=== PATIENT | female | born 1960 | race Caucasian/White ===

== ENCOUNTER 2018-05-17 10:55 | Day surgery (SDC) | payer OTHER, MEDICARE ==
[~2018-05-17] VITALS: Ht 162.6 cm; Wt 98.9 kg
[~2018-05-17 10:55] MED LIST: CHOL10002 PO; CLON1 PO; ESCI20 PO; L-METHYLFOLATE15 MG PO; LEVSOD150 PO; MELA3 PO; Norco 5-325 Ta1 EACH PO; TRAZ50 PO
== END 2018-05-17 22:48 | disposition home or self-care (01) ==
LOC: ORSCMMR 10:55
PROVIDERS: Orthopaedic Surgery
PROC: 0PSJ04Z Reposition Left Radius with Internal Fixation Device, Open Approach (ICD-10-PCS; principal; 2018-05-17 12:30)
DX: S52.572A Other intraarticular fracture of lower end of left radius, initial encounter for closed fracture (principal); W18.30XA Fall on same level, unspecified, initial encounter; F41.9 Anxiety disorder, unspecified; F34.1 Dysthymic disorder; E03.9 Hypothyroidism, unspecified; F43.21 Adjustment disorder with depressed mood; E66.9 Obesity, unspecified; Z68.37 Body mass index [BMI] 37.0-37.9, adult; Z79.899 Other long term (current) drug therapy
CPT/HCPCS: 73100; C1713; J0690; J1100; J1885; J2250; J2405; J3010; J7120

== ENCOUNTER 2020-07-21 17:30 | Observation (INO) | payer MEDICARE, OTHER ==
[~2020-07-21] VITALS: Ht 162.6 cm; Wt 121.4 kg
[2020-07-21 18:04] LABS: BASOPHILS PERCENT AUTO 0 % (0-2); EOSINOPHILS PERCENT AUTO 0 % (0-6); Hematocrit 48.1 % (33.0-51.0); Hemoglobin 15.1 g/dL (11.5-16.0); IMMATURE GRAN ABSOLUTE AUTO 0.02 K/mm3 (0.00-0.10); IMMATURE GRAN PERCENT AUTO 0 % (0-1); LYMPHOCYTES ABSOLUTE AUTO 1.48 K/mm3 (0.84-5.20); LYMPHOCYTES PERCENT AUTO 25 % (21-46); MONOCYTES PERCENT AUTO 8 % (4-13); Mean Corpuscular HGB 28.8 pg (26.0-34.0); Mean Corpuscular HGB Conc 31.4 g/dL (31.5-36.5); Mean Corpuscular Volume 92 fL (80-100); NEUTROPHILS ABSOLUTE AUTO 3.93 K/mm3 (1.96-9.15); NEUTROPHILS PERCENT AUTO 66 % (41-73); Platelet Count 218 K/mm3 (150-400); RDW Coefficient Variation 13.5 % (11.7-14.2); RDW Standard Deviation 46.1 fL (35.1-46.3); Red Blood Cell Count 5.24 M/mm3 (3.80-5.20); White Blood Cell Count 5.93 K/mm3 (4.00-11.30)
[2020-07-21 18:19] LABS: International Normalized Ratio 0.99; Prothrombin Time Results 10.6 Sec (9.7-11.5)
[2020-07-21 18:21] LABS: Source, Urine Voided
[2020-07-21 18:38] LABS: Appearance, Urine Clear (Clear); Bilirubin, Urine Neg (Neg); Blood, Urine Neg (Neg); Color, Urine Yellow (P-Yellow); Glucose Qualitative, Urine Neg (Neg); Ketones, Urine Neg (Neg); Leukocyte Esterase, Urine Neg (Neg); Nitrite, Urine Neg (Neg); Protein, Urine Neg (Neg); Urobilinogen, Urine NORM (Normal)
[2020-07-21 18:47] LABS: Alanine Aminotransfer (ALT/SGP 38 U/L (12-78); Albumin, Blood 3.5 g/dL (3.4-5.0); Albumin/Globulin Ratio 0.9 (0.8-1.8); Alk Phos 179 U/L (50-136); Anion Gap 5 mmol/L (6-16); Aspartate Aminotrans (AST/SGOT 22 U/L (12-37); Bilirubin, Total 0.4 mg/dL (0.1-1.0); Blood Urea Nitrogen 22 mg/dL (8-24); Bun/Creatinine Ratio 26.3 (12.0-20.0); CO2, Blood 26 mmol/L (21-32); Calcium, Blood 8.9 mg/dL (8.5-10.1); Chloride, Blood 110 mmol/L (98-108); Creatinine, Blood 0.84 mg/dL (0.40-1.00); Globulin, Blood 3.8 g/dL (2.2-4.0); Glomerular Filtration Rate >60 (60-); Glucose, Blood 96 mg/dL (70-99); Sodium, Blood 141 mmol/L (136-145); Total Protein, Blood 7.3 g/dL (6.4-8.2); Troponin I <0.015 ng/mL (0.000-0.040)
[2020-07-21 18:58] LABS: Ethanol (Alcohol), Blood, Med <3 mg/dL
[2020-07-21 18:58] LABS: U Amphetamine Screen Not Detected; U Barbituate Screen Not Detected; U Benzodiazapine Screen Not Detected; U Buprenorphine Screen Not Detected; U Cannabinoids Screen Not Detected; U Cocaine Screen Not Detected; U Methadone Screen Not Detected; U Methamphetamine Screen Not Detected; U Opiates Screen Not Detected; U Oxycodone Screen Not Detected; U Phencyclidine Screen Not Detected; U Propoxyphene Screen Not Detected
[2020-07-21 19:34] LABS: Salicylate 1.8 mg/dL (2.8-20.0)
[2020-07-21 19:41] LABS: Acetaminophen, Random <2.0 ug/mL (10.0-30.0)
[2020-07-21] MEDS ORDERED: EFFEXOR XR150 MG PO (20:16)
[2020-07-21] MEDS ORDERED: ATOR40TA PO (20:16)
[2020-07-21] MEDS ORDERED: NEURONTIN400 M1 PO (20:17)
[2020-07-21 20:18] LABS: Influenza A, PCR Negative (NEGATIVE); Influenza B, PCR Negative (NEGATIVE); Resp Syncytial Virus, PCR Negative (NEGATIVE); SARS-Cov-2 (COVID-19) PCR, MMC Negative (NEGATIVE)
[2020-07-21] MEDS ORDERED: TRAZ100 PO (20:20)
[2020-07-21] MEDS ORDERED: Vitamin D2000 UNIT PO (20:21)
[2020-07-22 06:00] LABS: BASOPHILS PERCENT AUTO 0 % (0-2); EOSINOPHILS PERCENT AUTO 0 % (0-6); Hematocrit 45.7 % (33.0-51.0); Hemoglobin 14.2 g/dL (11.5-16.0); IMMATURE GRAN ABSOLUTE AUTO 0.01 K/mm3 (0.00-0.10); IMMATURE GRAN PERCENT AUTO 0 % (0-1); LYMPHOCYTES ABSOLUTE AUTO 1.19 K/mm3 (0.84-5.20); LYMPHOCYTES PERCENT AUTO 19 % (21-46); MONOCYTES ABSOLUTE AUTO 0.52 K/mm3 (0.16-1.47); MONOCYTES PERCENT AUTO 8 % (4-13); Mean Corpuscular HGB Conc 31.1 g/dL (31.5-36.5); Mean Corpuscular Volume 93 fL (80-100); Mean Platelet Volume 10.2 fL (9.1-12.4); NEUTROPHILS ABSOLUTE AUTO 4.68 K/mm3 (1.96-9.15); NEUTROPHILS PERCENT AUTO 73 % (41-73); Platelet Count 204 K/mm3 (150-400); RDW Coefficient Variation 13.5 % (11.7-14.2); RDW Standard Deviation 46.2 fL (35.1-46.3)
[2020-07-22 06:11] LABS: Alanine Aminotransfer (ALT/SGP 36 U/L (12-78); Albumin, Blood 3.3 g/dL (3.4-5.0); Alk Phos 167 U/L (50-136); Anion Gap 3 mmol/L (6-16); Aspartate Aminotrans (AST/SGOT 28 U/L (12-37); Bilirubin, Total 0.4 mg/dL (0.1-1.0); Blood Urea Nitrogen 18 mg/dL (8-24); Bun/Creatinine Ratio 25.5 (12.0-20.0); CO2, Blood 27 mmol/L (21-32); Calcium, Blood 8.5 mg/dL (8.5-10.1); Chloride, Blood 113 mmol/L (98-108); Creatinine, Blood 0.71 mg/dL (0.40-1.00); Globulin, Blood 3.2 g/dL (2.2-4.0); Glomerular Filtration Rate >60 (60-); Glucose, Blood 83 mg/dL (70-99); Potassium, Blood 4.1 mmol/L (3.5-5.5); Sodium, Blood 143 mmol/L (136-145); Total Protein, Blood 6.5 g/dL (6.4-8.2)
--- NOTE | 2020-07-22 17:57 | NUR ---
SHIFT SUMMARY- PT ALERT AND ORIENTED AND HAS AN UNDERSTANDING OF WHY SHE IS HERE. PT STATED SHE TOOK THOSE PILLS DELIBERATELY TO TRY TO END HER LIFE. PT SCORES A HIGH SUICIDE RISK. PT IS ON CAMERAS WITH A 1:1 SITTER. PLAN IS TO DISCHARGE TO IN PT PSYCH FACILITY WHEN A BED IS AVAILABLE.
--- NOTE | 2020-07-23 03:27 | NUR ---
SHIFT SUMMARY: 60 Y/O FEMALE RESTED COMFORTABLY ALL SHIFT WITH 1:1 SITTER AT SIDE ENTIRE SHIFT; PT VERY QUIET AND WITHDRAWN AT TIMES WITH MINIMAL INTERACTION NOTED BETWEEN SITTER AND THIS NURSE OR DIRECTOR MARKET RESEARCH STAFF; PT ON REMOTE CAMERA OBSERVATION FOR SUICIDAL IDEATIONS; DENIES PAIN OR NAUSEA; BED LOW POSITION WITH CALL LIGHT AT SIDE.
--- NOTE | 2020-07-23 16:51 | NUR ---
PT OFFERED A SHOWER BUT DECLINED. PT IS CURRENTLY UPSET ABOUT GOING TO A FACILITY. PRIOR TO HER VISITING HER SHE WAS OK WITH THE PLAN. WHEN HER CAME IN HE WAS UPSET ABOUT IT AND COTTON BUYER WERE CALLED IN TO EXPLAIN THE SITUATION TO HIM. HE BEGAN TO UNDERSTAND THE SITUATION AND LEFT CALMLY A WHILE AFTER THE EVENT. PT IS STILL CURRENTLY UPSET.
[2020-07-23 17:40] LABS: Source, Urine Clean Catch
[2020-07-23 17:57] LABS: Appearance, Urine Bloody (Clear); Bilirubin, Urine Neg (Neg); Blood, Urine 5+ (Neg); Color, Urine Red (P-Yellow); Glucose Qualitative, Urine Neg (Neg); Ketones, Urine 1+ (Neg); Leukocyte Esterase, Urine 1+ (Neg); Nitrite, Urine Neg (Neg); Protein, Urine 4+ (Neg); Specific Gravity, Urine 1.015 (1.003-1.022); Urobilinogen, Urine NORM (Normal); pH, Urine 6.5 (5.0-8.0)
--- NOTE | 2020-07-23 18:04 | NUR ---
CALLED DR MANTILLA PT HAD A LITTLE PINK IN THE TOILET WHEN SHE URINATED THIS AFTERNOON SO HAT WAS PLACED TO COLLECT URINE THIS EVENING WHEN SHE WENT AGAIN. URINE WAS ALEXUS RED AND WHEN PLACED IN A SPECIMEN CUP LIGH WOULD NOT SHINE THROUGH, ODOR WAS VERY FOUL. RECIEVED ORDER FOR URINALYSIS WITH CULTURE AND A CANCEL TRANSPORT FOR INPT PSYCH UNTIL TOMORROW.
--- NOTE | 2020-07-23 18:11 | NUR ---
CALLED DR TO REQUEST H&H ORDER RECIEVED.
[2020-07-23 18:18] LABS: Bacteria Many /hpf; Red Blood Cells, Urine TNTC /hpf (0-2); Squamous Epithelial Cells Few /hpf (Few)
--- NOTE | 2020-07-23 18:25 | NUR ---
PT STATED SHE IS NOW HAVING LOWER ABDOMEN (BLADDER PAIN) THIS IS NEW. PT STATED SHE IS ALSO HAVING LOW BACK PAIN WELL. THIS IS NOT NEW HOWEVER THE PT STATED IT FEELS DIFFERENT THAN BEFORE. WILL CALL DR TO UPDATE.
[2020-07-23 18:27] LABS: Hematocrit 47.2 % (33.0-51.0); Hemoglobin 14.8 g/dL (11.5-16.0)
--- NOTE | 2020-07-23 19:50 | NUR ---
SHIFT SUMMARY- SPOKE TO TRANSPORT COMPANY AND [facility] ABOUT THE PT DELAY. CALLED ABOUT THE PT NEW ONSET OF 3/10 PAIN IN THE LOW ABDOMEN BLADDER AREA, LEFT A MESSAGE. REPORT COMPLETED WITH NIGHT RN. PT IV WAS DC'D JUST PRIOR TO GOING TO THE BATHROOM WHEN SHE WAS PREPARING TO LEAVE, AT WHICH TIME SHE URINATED INTO A HAT ALEXUS RED BLOOD. SEE PREVIOUS NOTES FOR DETAILS. H&H CAME BACK WNL AT THIS TIME, NIGHT RN AWARE. NO S&S OF DISTRESS NOTED AT THE TIME OF SHIFT CHANGE. PT STILL ON HIGH RISK SUICIDE PRECAUTIONS WITH A 1:1 SITTER, ON CAMERA.
--- NOTE | 2020-07-23 20:14 | NUR ---
PT AMBULATED BATHROOM WITH GAIT SLIGHTLY UNSTEADY AND VOIDED 200ML LIGHT RED FLUID; DENIES PAIN OR NAUSEA; SITTER AT SIDE FOR 1:1 OBSERVATION AND REMOTE CAMERA OBSERVATION IN EFFECT ALSO.
--- NOTE | 2020-07-24 03:36 | NUR ---
SHIFT SUMMARY: 60 Y/O OB[place] FEMALE RESTED COMFORTABLY ALL SHIFT (SEE PREVIOUS NURSING NOTES); PT HAS 1:1 SITTER MAINTAINED ALL SHIFT FOR SUICIDAL IDEATIONS; PT HAS VOIDED ALEXUS RED BLOOD TWICE THIS SHIFT (OBSERVED BY THIS NURSE); DENIES PAIN OR NAUSEA; PT HAS FLAT AFFECT WITH MINIMAL INTERACTION WITH NURSING STAFF NOTED; BED LOW POSITION WITH CALL LIGHT AT SIDE.
[2020-07-24 05:20] LABS: BASOPHILS ABSOLUTE AUTO 0.01 K/mm3 (0.00-0.23); BASOPHILS PERCENT AUTO 0 % (0-2); EOSINOPHILS PERCENT AUTO 0 % (0-6); Hematocrit 45.6 % (33.0-51.0); Hemoglobin 14.5 g/dL (11.5-16.0); IMMATURE GRAN ABSOLUTE AUTO 0.02 K/mm3 (0.00-0.10); IMMATURE GRAN PERCENT AUTO 0 % (0-1); LYMPHOCYTES ABSOLUTE AUTO 1.16 K/mm3 (0.84-5.20); LYMPHOCYTES PERCENT AUTO 13 % (21-46); MONOCYTES ABSOLUTE AUTO 0.81 K/mm3 (0.16-1.47); MONOCYTES PERCENT AUTO 9 % (4-13); Mean Corpuscular HGB 29.5 pg (26.0-34.0); Mean Corpuscular HGB Conc 31.8 g/dL (31.5-36.5); Mean Corpuscular Volume 93 fL (80-100); Mean Platelet Volume 10.1 fL (9.1-12.4); NEUTROPHILS ABSOLUTE AUTO 7.31 K/mm3 (1.96-9.15); NEUTROPHILS PERCENT AUTO 79 % (41-73); Platelet Count 192 K/mm3 (150-400); RDW Coefficient Variation 13.4 % (11.7-14.2); RDW Standard Deviation 45.4 fL (35.1-46.3); Red Blood Cell Count 4.91 M/mm3 (3.80-5.20); White Blood Cell Count 9.31 K/mm3 (4.00-11.30)
[2020-07-24 05:43] LABS: Anion Gap 5 mmol/L (6-16); Blood Urea Nitrogen 13 mg/dL (8-24); Bun/Creatinine Ratio 14.3 (12.0-20.0); CO2, Blood 27 mmol/L (21-32); Calcium, Blood 8.6 mg/dL (8.5-10.1); Chloride, Blood 110 mmol/L (98-108); Creatinine, Blood 0.91 mg/dL (0.40-1.00); Glomerular Filtration Rate >60 (60-); Glucose, Blood 118 mg/dL (70-99); Potassium, Blood 3.6 mmol/L (3.5-5.5); Sodium, Blood 142 mmol/L (136-145)
--- NOTE | 2020-07-24 07:54 | NUR ---
No Safety Plan completed at this time due to patient requiring higher level of care of psychiatric inpatient. Unable to engage in safety plannng due to intense SI, and contraindicated for discharge to home due to safety risk of self harm. Shraddha López M.Ed., [facility], Behavior Health Director
--- NOTE | 2020-07-24 11:20 | NUR ---
PATIENT STATED THAT SHE DOES NOT WANT TO AND THAT SHE DOES NOT HAVE A SUICIDE PLAN. PATIENT STATED THAT "SOMETIMES I GET REALLY DEPRESSED AND JUST DON'T SEE A REASON TO STAY ALIVE". SITTER IS OUSIDE THE ROOM MONITORING THE PATIENT. CAMERA MONITORING IS ON. PATIENT JUST WENT TO THE BATHROOM WITH RN SUPERVISING, 400 ML URINE OUTPUT, RED TINGED. THE VOID EARLIER THIS MORNING WAS ALEXUS RED IN COLOR. PATIENT STATES SHE HAS SOME BURNING WITH URINATION. PROPER CAITLYN CARE WAS COMPLETED.
--- NOTE | 2020-07-24 11:30 | NUR ---
PATIENT STATES SHE HAS NOT HAD THOUGHTS TO KILL HERSELF SINCE LAST ASSESSED. PATIENT STATES SHE DOES NOT HAVE A PLAN TO KILL HERSLEF.
--- NOTE | 2020-07-24 15:33 | NUR ---
sUICIDE sAFETY pLAN completed Pt sees Dr. blair at [facility] every 3-6 weeks. She has a scheduled appointment--not sure when but it is on her calendar at home. Pt. was talkative and was able to smile and joke regarding her cats. Pt is in SSD for depression. Reports that counseling h"has not worked in the past", and she does not want a counselor at this point. Her mood is more elevated and her affect is appropriate to the conversation. Pt is glad that she is alive, and reports she thinks she got overwhelmed with the financial issues. Her is retired, No children. She has a good male friend that she skypes with. This friend is who alerted her to her overdosing, as she had told er friend that she took pills. Pt is looking firward to going home if the discharges her. Shraddha López M.Ed., [facility]
--- NOTE | 2020-07-24 18:19 | NUR ---
PATIENT IS ALERT AND ORIENTED AND COOPERATIVE WITH CARE. DR. CUMMINS DISCONTINUED SUICIDE PRECAUTIONS FOR THE PATIENT TODAY. PATIENT COMPLAINED OF A HEADACHE THIS AFTERNOON, TREATED WITH TYLENOL. FABRICATOR ARTIFICIAL BREAST REPORTED A TEMPERATURE OF 100.5 THIS AFTERNOON, AFTER THE TYLENOL WAS GIVEN TO THE PATIENT, UPON RECHECKING THE ORAL TEMP THE RESULT WAS 98.7. PATIENT COMPLAINED OF BURNING WITH URINATION. WILL CONTINUE TO MONITOR.
--- NOTE | 2020-07-25 06:08 | NUR ---
SHIFT SUMMARY PT IS A 60 Y/O FEMALE, ADMITTED FOR AN INTENTIONAL OVERDOSE. PT WAS RELEASED FROM SI PRECAUTIONS ON DAY SHIFT YESTERDAY PER REPORT. NO REPORTS OF SI, ACUTE PAIN, NAUSEA OR SOB. VITAL SIGNS STABLE. PT DID REPORT CONTINUED BLOOD IN HER URINE, BUT STATES IT IS "LESS THAN IT WAS BEFORE". NO ACUTE CHANGES IN PT CONDITION NOTED DURING THE NIGHT. WILL CONTINUE TO MONITOR AND TREAT PER EMAR UNTIL HAND OFF TO DAY SHIFT RN.
--- NOTE | 2020-07-25 12:29 | NUR ---
SI PER PATIENT'S SISTER: AFTER RECEIVING VERBAL PERMISSION FROM THE PATIENT, RN SPOKE WITH PATIENT'S SISTER BRANDON ON THE PHONE. SISTER EXPRESSED CONCERN OVER THE PATIENT'S SAFETY AT HOME AND THE PATIENT'S RESISTANCE TO GETTING HELP IN THE COMMUNITY. PATIENT'S SISTER REPORTED THAT THE PATIENT'S SUICIDAL IDEATION HAS INCREASED OVER THE LAST 6 MONTHS OR SO. SISTER REPORTED THAT THE PATIENT'S IS "CONTROLLING" AND THAT HE IS NOT WILLING TO PROVIDE THE PATIENT WITH THE MONEY NEEDED FOR OUTPATIENT PSYCHIATRIC HELP. PATIENT REQUESTED THAT THIS INFORMATION BE PASSED ON TO THE PATIENT'S MD. DISCUSSED THIS CONVERSATION WITH DR. NORMAN. AT THIS TIME, THERE ARE NO CHANGES TO THE PLAN OF CARE OR DISCHARGE.
[2020-07-25] MEDS ORDERED: ACET325 PO (14:34)
[2020-07-25] MEDS ORDERED: LACT PO (14:35)
[2020-07-25] MEDS ORDERED: AMOCLA875 PO (14:35)
[2020-07-25] MEDS ORDERED: TRAZ50 PO (14:39)
[2020-07-25] MEDS ORDERED: EFFEXOR XR150 MG PO (14:40)
[2020-07-25] MEDS ORDERED: Vitamin D2000 UNIT PO (14:40)
--- NOTE | 2020-07-25 16:15 | NUR ---
DISCHARGE: 1500: PATIENT DENIED ABDOMINAL PAIN THROUGHOUT SHIFT. PATIENT REPORTED MINIMAL BLOOD IN URINE. PATIENT REPORTS GREAT IMPROVEMENT. PATIENT DENIES SUICIDAL IDEATION AT THIS TIME. DISCUSSED STRATEGIES FOR MANAGING ANXIETY AND DEPRESSION AT HOME. ENCOURAGED PATIENT TO REACH OUT TO HER SUPPORT GROUP AND TO FIND WAYS TO INCREASE (EX. SHE ENJOYS WORKING WITH CATS. ENCOURAGED HER TO REACH OUT TO [employer] FOR VOLUNTEER OPPORTUNITIES). PATIENT REPORTED THAT SHE MAY BE LOSING HER HOME RELATED TO FINANCIAL ISSUES. DISCUSSED WITH CODER OPERATOR. PATIENT REPORTED THAT SHE DID NOT WANT THE CODER OPERATOR TO FOLLOW-UP TOMORROW WITH HER . MESSAGE LEFT WITH CODER OPERATOR KINDRA CONLEY. PROVIDED PATIENT WITH COMMUNITY PHONE NUMBERS THAT MAY BE ALBE TO ASSIST. DISCUSSED DISCHARGE ORDER FOR TRAZADONE 25MG PRN Q4HR WITH DR. NORMAN. PATIENT HAS NOT REQUIRED THIS MEDICATION DURING HER STAY. THIS MEDICATION WAS DISCONTINUED FOR DISCHARGE. PATIENT NOTIFIED. PATIENT DISCHARGE RX FAXED TO [facility] PER PATIENT REQUEST. DISCHARGE EDUCATION AND INSTRUCTIONS PROVIDED. DISCUSSED STRATEGIES FOR MANAGEMENT DEPRESSION AT HOME AND PROVIDED RELATED EDUCATION. ALL QUESTIONS AND CONCERNS ADDRESSED. PATIENT DISCHARGED IN WHEELCHAIR WITH PARACH[employer] MANUFACTURING SUPERVISOR. PATIENT STABLE AT TIME OF DISCHARGE.
== END 2020-07-25 15:43 | disposition home or self-care (01) ==
LOC: ER 17:30 → MEDS 17:31 → ERHOLD 17:31 → MEDS 07-22 12:15
PROVIDERS: Emergency Medicine; Internal Medicine; ADMIT Internal Medicine
DX: T42.4X2A Poisoning by benzodiazepines, intentional self-harm, initial encounter (principal); F33.9 Major depressive disorder, recurrent, unspecified; N39.0 Urinary tract infection, site not specified; R31.9 Hematuria, unspecified; B96.20 Unspecified Escherichia coli [E. coli] as the cause of diseases classified elsewhere; E03.9 Hypothyroidism, unspecified; E78.5 Hyperlipidemia, unspecified; G62.9 Polyneuropathy, unspecified; G47.30 Sleep apnea, unspecified; Z88.8 Allergy status to other drugs, medicaments and biological substances; Z79.899 Other long term (current) drug therapy; Z20.828 Contact with and (suspected) exposure to other viral communicable diseases; Z23 Encounter for immunization
CPT/HCPCS: 0241U; 36415; 51701; 51798; 71045; 80048; 80053; 81001; 81003; 83690; 84439; 84443; 84484; 85014; 85018; 85025; 85610; 87077; 87086; 87186; 93005; 93010; 96361; 99285-25; A9270; G0480; J0696; J1650; J7030

== ENCOUNTER 2021-03-30 09:20 | Day surgery (SDC) | payer MEDICARE, OTHER ==
[~2021-03-30] VITALS: Ht 162.6 cm; Wt 121.5 kg
[~2021-03-30 09:20] MED LIST changes: +ABILIFY MYCITE2 M2 PO; +ACET325 PO; +AMOCLA875 PO; +ATOR40TA PO; +EFFEXOR XR150 MG PO; +LACT PO; +NEURONTIN400 M1 PO; +TRAZ100 PO; +Vitamin D2000 UNIT PO
== END 2021-03-30 12:04 | disposition home or self-care (01) ==
LOC: ORSCSDS 09:20
PROVIDERS: Student in an Organized Health Care Education/Training Program
PROC: 0DBL8ZX Excision of Transverse Colon, Via Natural or Artificial Opening Endoscopic, Diagnostic (ICD-10-PCS; principal; 2021-03-30 10:45)
PROC: 0DBN8ZX Excision of Sigmoid Colon, Via Natural or Artificial Opening Endoscopic, Diagnostic (ICD-10-PCS; principal; 2021-03-30 10:45)
DX: Z12.11 Encounter for screening for malignant neoplasm of colon (principal); K63.5 Polyp of colon; K64.4 Residual hemorrhoidal skin tags; Z86.010 Personal history of colon polyps; F31.9 Bipolar disorder, unspecified; E03.9 Hypothyroidism, unspecified; Z79.899 Other long term (current) drug therapy
CPT/HCPCS: 88305; J2704; J7120

== ENCOUNTER 2021-05-19 10:44 | Day surgery (SDC) | payer MEDICARE, OTHER ==
[~2021-05-19] VITALS: Ht 160 cm; Wt 121.7 kg
--- NOTE | 2021-05-19 12:32 | NUR ---
05/19/21 1232 Alek Junior 0.15MG EPI ADDED TO 30ML 0.5% MARCAINE PL TO ACHIEVE SOLUTION OF 1:200,000.
== END 2021-05-19 15:11 | disposition home or self-care (01) ==
LOC: ORSCSDS 10:44
PROVIDERS: Podiatrist Foot & Ankle Surgery
PROC: 0SGH04Z Fusion of Right Tarsal Joint with Internal Fixation Device, Open Approach (ICD-10-PCS; principal; 2021-05-19 12:00)
PROC: 0QSN04Z Reposition Right Metatarsal with Internal Fixation Device, Open Approach (ICD-10-PCS; principal; 2021-05-19 12:00)
DX: M21.611 Bunion of right foot (principal); M77.41 Metatarsalgia, right foot; E03.9 Hypothyroidism, unspecified; F32.9 Major depressive disorder, single episode, unspecified; E66.01 Morbid (severe) obesity due to excess calories; Z68.42 Body mass index [BMI] 45.0-49.9, adult; Z79.899 Other long term (current) drug therapy
CPT/HCPCS: C1713; C1769; C1776; J0171; J0690; J1100; J1885; J2250; J2405; J2704; J3010; J7120

== ENCOUNTER → 2021-09-08 | Outpatient (CLI) | payer MEDICARE, OTHER ==
[2021-09-08 12:11] LABS: Source, Urine Clean Catch
[2021-09-08 15:26] LABS: Bilirubin, Urine Neg (Neg); Blood, Urine 1+ (Neg); Glucose Qualitative, Urine Neg (Neg); Ketones, Urine Neg (Neg); Leukocyte Esterase, Urine 2+ (Neg); Nitrite, Urine Pos (Neg); Protein, Urine Neg (Neg); Urobilinogen, Urine NORM (Normal)
[2021-09-08 16:04] LABS: Appearance, Urine Hazy (Clear); Color, Urine Yellow (P-Yellow)
[2021-09-08 16:05] LABS: White Blood Cells, Urine 50-100 /hpf (0-5)
[2021-09-08 16:06] LABS: Bacteria Many /hpf; Red Blood Cells, Urine 0-2 /hpf (0-2); Squamous Epithelial Cells Rare /hpf (Few)
== END | disposition home or self-care (01) ==
LOC: LAB SHORT 09:20
PROVIDERS: Student in an Organized Health Care Education/Training Program
DX: R82.90 Unspecified abnormal findings in urine (principal); R32 Unspecified urinary incontinence
CPT/HCPCS: 81001; 87077; 87086; 87186

== ENCOUNTER 2022-04-28 08:46 | Emergency (ER) | payer MEDICARE, OTHER ==
[~2022-04-28] VITALS: Ht 162.6 cm; Wt 136.1 kg
[2022-04-28 10:15] LABS: BASOPHILS PERCENT AUTO 0 % (0-2); EOSINOPHILS PERCENT AUTO 0 % (0-6); Hematocrit 48.4 % (33.0-51.0); Hemoglobin 15.3 g/dL (11.5-16.0); IMMATURE GRAN ABSOLUTE AUTO 0.02 K/mm3 (0.00-0.10); IMMATURE GRAN PERCENT AUTO 0 % (0-1); LYMPHOCYTES ABSOLUTE AUTO 1.27 K/mm3 (0.84-5.20); LYMPHOCYTES PERCENT AUTO 16 % (21-46); MONOCYTES PERCENT AUTO 7 % (4-13); Mean Corpuscular HGB 29.5 pg (26.0-34.0); Mean Corpuscular HGB Conc 31.6 g/dL (31.5-36.5); Mean Corpuscular Volume 93 fL (80-100); Mean Platelet Volume 10.1 fL (9.1-12.4); NEUTROPHILS ABSOLUTE AUTO 6.22 K/mm3 (1.96-9.15); NEUTROPHILS PERCENT AUTO 77 % (41-73); Platelet Count 221 K/mm3 (150-400); RDW Coefficient Variation 13.5 % (11.7-14.2); RDW Standard Deviation 46.1 fL (35.1-46.3); Red Blood Cell Count 5.18 M/mm3 (3.80-5.20); White Blood Cell Count 8.11 K/mm3 (4.00-11.30)
[2022-04-28 10:57] LABS: Albumin, Blood 3.5 g/dL (3.4-5.0); Albumin/Globulin Ratio 0.9 (0.8-1.8); Bilirubin, Total 0.3 mg/dL (0.1-1.0); Bun/Creatinine Ratio 18.8 (12.0-20.0); Creatinine, Blood 1.01 mg/dL (0.40-1.00); Globulin, Blood 3.9 g/dL (2.2-4.0); Total Protein, Blood 7.4 g/dL (6.4-8.2)
[2022-04-28] MEDS ORDERED: Prednisone20 MG PO (11:33)
== END 2022-04-28 11:42 | disposition home or self-care (01) ==
LOC: ER 08:46
PROVIDERS: Physician Assistant
DX: G51.0 Bell's palsy (principal); Z88.8 Allergy status to other drugs, medicaments and biological substances; Z79.899 Other long term (current) drug therapy
CPT/HCPCS: 36415; 70450; 80053; 83690; 85025

== ENCOUNTER 2022-08-12 07:40 | Emergency (ER) | payer OTHER, MEDICARE ==
[~2022-08-12] VITALS: Ht 162.6 cm; Wt 149.7 kg
[~2022-08-12 07:40] MED LIST changes: +Prednisone20 MG PO
[2022-08-12 09:42] LABS: Albumin, Blood 3.3 g/dL (3.4-5.0); Albumin/Globulin Ratio 0.9 (0.8-1.8); Bilirubin, Total 0.2 mg/dL (0.1-1.0); Bun/Creatinine Ratio 24.3 (12.0-20.0); Calcium, Blood 8.9 mg/dL (8.5-10.1); Creatinine, Blood 1.11 mg/dL (0.40-1.00); Globulin, Blood 3.7 g/dL (2.2-4.0); Potassium, Blood 4.6 mmol/L (3.5-5.5)
[2022-08-12 09:43] LABS: BASOPHILS PERCENT AUTO 0 % (0-2); EOSINOPHILS PERCENT AUTO 0 % (0-6); Hematocrit 44.4 % (33.0-51.0); Hemoglobin 14.3 g/dL (11.5-16.0); IMMATURE GRAN ABSOLUTE AUTO 0.03 K/mm3 (0.00-0.10); IMMATURE GRAN PERCENT AUTO 0 % (0-1); LYMPHOCYTES ABSOLUTE AUTO 1.55 K/mm3 (0.84-5.20); LYMPHOCYTES PERCENT AUTO 20 % (21-46); MONOCYTES ABSOLUTE AUTO 0.63 K/mm3 (0.16-1.47); MONOCYTES PERCENT AUTO 8 % (4-13); Mean Corpuscular HGB 30.8 pg (26.0-34.0); Mean Corpuscular HGB Conc 32.2 g/dL (31.5-36.5); Mean Corpuscular Volume 96 fL (80-100); Mean Platelet Volume 10.3 fL (9.1-12.4); NEUTROPHILS ABSOLUTE AUTO 5.56 K/mm3 (1.96-9.15); NEUTROPHILS PERCENT AUTO 72 % (41-73); Platelet Count 212 K/mm3 (150-400); RDW Coefficient Variation 14.3 % (11.7-14.2); RDW Standard Deviation 50.2 fL (35.1-46.3); Red Blood Cell Count 4.64 M/mm3 (3.80-5.20); White Blood Cell Count 7.77 K/mm3 (4.00-11.30)
[2022-08-12] MEDS ORDERED: LIDO700A20 TOP (10:58)
[2022-08-12] MEDS ORDERED: MECL25 PO (10:58)
== END 2022-08-12 12:04 | disposition home or self-care (01) ==
LOC: ER 07:40
PROVIDERS: Student in an Organized Health Care Education/Training Program
DX: M25.511 Pain in right shoulder (principal); R42 Dizziness and giddiness; E03.9 Hypothyroidism, unspecified; W01.0XXA Fall on same level from slipping, tripping and stumbling without subsequent striking against object, initial encounter; Z88.8 Allergy status to other drugs, medicaments and biological substances; Z79.899 Other long term (current) drug therapy; Z79.890 Hormone replacement therapy
CPT/HCPCS: 73030; 80053; 85025; 93005; 93010; A9270; J1885; J7030

== ENCOUNTER → 2023-07-27 | Outpatient (CLI) | payer MEDICARE, OTHER ==
[~2023-07-27] MED LIST changes: +LIDO700A20 TOP; +MECL25 PO
== END | disposition home or self-care (01) ==
LOC: LAB SHORT 08:03 → LAB 08:03
DX: L98.9 Disorder of the skin and subcutaneous tissue, unspecified (principal)
CPT/HCPCS: 88305; 88312; 88313

== ENCOUNTER 2024-05-10 08:05 | Day surgery (SDC) | payer MEDICARE, OTHER ==
[~2024-05-10] VITALS: Ht 160 cm; Wt 145.7 kg
[~2024-05-10 08:05] MED LIST changes: +Aspir 8181 MG PO; +Lactated Ringer's 1,000 ML IV SCH; +NAPR220 PO
[2024-05-10 08:33] VITALS: BP 151/99
--- NOTE | 2024-05-10 08:54 | NUR ---
Ambulatory in Day Surgery History, Chart, Medications and Allergies reviewed before start of procedure. Pre-Op teaching done. Pt verbalizes understanding. Patient States Post-Procedure ride home has been arranged.
[2024-05-10] MEDS ORDERED: propofoL 60 ML IV ONE (09:14)
--- NOTE | 2024-05-10 09:45 | NUR ---
05/10/24 0945 Alondra Littlejohn History, Chart, Medications and Allergies reviewed before start of procedure. MONITOR INTACT WITH CONTINUOUS PULSE OXIMETRY, CONTINUOUS END TITAL CO2, AND INTERMITTENT BLOOD PRESSURE. Bite Block Placed. PATIENT DETERMINED TO BE ASA APPROPRIATE FOR PROPOFOL SEDATION PRIOR TO START OF PROCEDURE BY DR. WYNN.
[2024-05-10 09:51] VITALS: BP 118/68
[2024-05-10 10:00] VITALS: BP 133/83
--- NOTE | 2024-05-10 10:12 | NUR ---
Discharge instructions reviewed with patient. Patient verbalizes understanding. Copy given to patient to take home. Patient States Post-Procedure ride home has been arranged. Discharged via wheelchair to private car for ride home.
== END 2024-05-10 10:10 | disposition home or self-care (01) ==
LOC: ORSCMMR 08:05 → ORD 09:30 → ORSCMMR 10:10
PROVIDERS: Internal Medicine Gastroenterology
PROC: 0DJD8ZZ Inspection of Lower Intestinal Tract, Via Natural or Artificial Opening Endoscopic (ICD-10-PCS; principal; 2024-05-10 09:30)
DX: Z12.11 Encounter for screening for malignant neoplasm of colon (principal); Z86.010 Personal history of colon polyps; K21.9 Gastro-esophageal reflux disease without esophagitis; G47.33 Obstructive sleep apnea (adult) (pediatric); E66.01 Morbid (severe) obesity due to excess calories; Z68.43 Body mass index [BMI] 50.0-59.9, adult; Z79.82 Long term (current) use of aspirin; Z79.899 Other long term (current) drug therapy
CPT/HCPCS: J2704; J7120

== ENCOUNTER → 2024-06-25 | Outpatient (CLI) | payer MEDICARE, OTHER ==
[~2024-06-25] MED LIST changes: -Lactated Ringer's 1,000 ML IV SCH
== END ==
LOC: LAB SHORT 13:25 → LAB 13:25
DX: R31.9 Hematuria, unspecified (principal)
CPT/HCPCS: 87077; 87086; 87186